=== PATIENT | female | born 1935 | race Caucasian/White ===

== ENCOUNTER 2017-03-14 08:40 | Inpatient (IN) | payer OTHER ==
[~2017-03-14] VITALS: Ht 154.9 cm; Wt 90.8 kg
[~2017-03-14 08:40] MED LIST: ACIDOPHILUS1 EAC4 PO; ACTOS15 MG; ACTOS15 MG PO; BENTYL20 MG PO; BIOTIN1000 MICRO PO; CALTRATE 600 +1 EACH; CENTRUM SILVER1 EACH; CRANBERRY300 MG PO; GLUCOSA-CHOND-1 EACH PO; GLUCOSAMINE 1,1 EAC1 PO; GLUCOSAMINE 1,1 EACH; LASIX40 MG PO; LO-DOSE ASPIRIN81 M1 PO; Lanoxin,Digitek PO; Lopressor PO; MIACALCIN200 INTUNI; MULTIVITAMIN1 EAC2 PO; NEXIUM40 MG PO; OMEGA 3-6-9 CO1 EACH PO; OPTIFLEX-C400 MG PO; OXYCODONE HCL5 MG PO; OXYCODONE-ACET1 EACH PO; PIOGLITAZONE HC15 MG PO; Proventil,Ventolin H IH; SENNA S TABLET1 EACH PO; SIMVASTATIN40 M1 PO; SIMVASTATIN40 MG PO; SUPER B COMPLE1 EAC1 PO; VALSARTAN-HCTZ1 EACH PO; VITAMIN D31000 UNIT PO; XARELTO10 MG PO; ZESTORETIC,P1 TABLET; ZOFRAN ODT4 MG PO; ZYRTEC10 M2 PO; Zestoretic,Prinzide PO; Zocor PO
[2017-03-14 10:09] LABS: HEMATOCRIT 35.3 % (36.0-46.0); HEMOGLOBIN 11.4 G/DL (11.9-15.5); MCH 30.1 PG (29.0-34.0); MCHC 32.3 G/DL (30.0-36.0); MCV 93.1 FL (83-99); PLATELET COUNT 196 K/uL (156-360); RBC DIS.WIDTH-CV 13.4 % (11.8-14.6); RED BLOOD COUNT 3.79 M/uL (3.80-5.20); WHITE BLOOD COUNT 7.2 K/uL (4.1-10.2)
[2017-03-14 10:47] LABS: TROP-I INTERPRETATION NEGATIVE; TROPONIN-I < 0.01 ng/mL (0.0-0.30)
[2017-03-14 10:48] LABS: CHLORIDE 98 MEQ/L (99-109); CREATININE 0.9 MG/DL (0.6-1.3); GFR ESTIMATE (CALCULATED) > 59 mL/min/; GLUCOSE 126 mg/dL (70-99); POTASSIUM 3.6 MEQ/L (3.7-5.4); SODIUM 136 MEQ/L (136-147); UREA NITROGEN (BUN) 22 mg/dL (9-23)
[2017-03-14 11:28] LABS: APPEARANCE SL.HAZY ((CLEAR)); BILIRUBIN NEGATIVE; BLOOD NEGATIVE; COLOR YELLOW ((YELLOW)); GLUCOSE (STRIP) NEGATIVE; KETONES NEGATIVE; LEUKOCYTES LARGE; NITRITE NEGATIVE; PROTEIN (STRIP) 30; SPECIFIC GRAVITY 1.017 (1.000-1.030); UROBILINOGEN 0.2 MG/DL (0.2-1.0)
[2017-03-14 11:46] LABS: BACTERIA RARE /HPF; EPITHELIAL CELLS RARE /HPF; HYALINE CASTS 0-5 /LPF; MUCUS TRACE /LPF; UCUL ADDED? NO; WHITE BLOOD CELLS 0-5 /HPF (0-5)
[2017-03-14] MEDS ORDERED: PERCOCET 5/31 TABLET PO (13:54)
[2017-03-14] MEDS ORDERED: SYMBICORT60 INHALAT IH (13:55)
[2017-03-14] MEDS ORDERED: FLONASE16 G1 BOTH NARES (13:55)
[2017-03-14] MEDS ORDERED: VENTOLIN HFA18 GM IH (13:55)
[2017-03-14] MEDS ORDERED: MYRBETRIQ25 MG PO (13:55)
[2017-03-14] MEDS ORDERED: GLUCOSAMINE &1 EAC1 PO (13:56)
[2017-03-14] MEDS ORDERED: CRANBERRY500 M3 PO (13:56)
[2017-03-14] MEDS ORDERED: ULTRAM50 MG PO (13:56)
[2017-03-14] MEDS ORDERED: CLARITIN10 MG PO (13:57)
[2017-03-14] MEDS ORDERED: LO-DOSE ASPIRIN81 M2 PO (13:57)
[2017-03-14] MEDS ORDERED: VITAMIN B-6100 MG PO (13:57)
[2017-03-14] MEDS ORDERED: VITAMIN B-12500 MC5 SL (13:58)
[2017-03-14 16:05] VITALS: BP 116/57
[2017-03-14 21:02] VITALS: BP 114/62
[2017-03-15 00:30] VITALS: BP 112/68
[2017-03-15 04:48] VITALS: BP 101/51
[2017-03-15 07:44] LABS: Estimated Average Glucose 123 mg/dL (70-123); HEMOGLOBIN A1c (GLYCOHEMOGLOB) 5.9 % HGB (Below 5.7)
[2017-03-15 08:16] VITALS: BP 109/60
[2017-03-15 08:17] LABS: ALBUMIN 3.6 G/DL (3.2-4.8); ALKALINE PHOSPHATASE 37 IU/L (3-129); ALT (GPT) 12 IU/L (3-49); AST (GOT) 21 IU/L (2-34); CHLORIDE 97 MEQ/L (99-109); GFR ESTIMATE (CALCULATED) 56 mL/min/; GLUCOSE 124 mg/dL (70-99); SODIUM 137 MEQ/L (136-147); TOTAL BILIRUBIN 0.5 MG/DL (0.0-1.0); TOTAL PROTEIN 6.2 G/DL (6.4-8.3); UREA NITROGEN (BUN) 27 mg/dL (9-23)
[2017-03-15 11:56] VITALS: BP 110/59
[2017-03-15 16:07] VITALS: BP 108/60
[2017-03-15 23:26] VITALS: BP 111/65
[2017-03-16 08:09] VITALS: BP 108/65
[2017-03-16 11:42] VITALS: BP 133/66
[2017-03-16 15:24] VITALS: BP 116/63
[2017-03-16 19:42] VITALS: BP 121/62
[2017-03-16 23:30] VITALS: BP 150/71
[2017-03-17 03:31] VITALS: BP 148/67
[2017-03-17 07:00] VITALS: BP 142/71
[2017-03-17 11:22] VITALS: BP 119/57
[2017-03-17 14:58] VITALS: BP 147/66
[2017-03-18 00:08] VITALS: BP 134/70
[2017-03-18 07:41] VITALS: BP 136/69
[2017-03-18] MEDS ORDERED: OSELTAMIVIR PHO30 MG PO (09:18)
[2017-03-18] MEDS ORDERED: PREDNISONE10 MG PO (09:20)
== END 2017-03-18 13:12 | disposition home health service (06) | DRG 194 ==
LOC: EME 08:40 → EDOF 13:39 → 2EAST 13:39 → ENRESERV 13:40 → 2EAST 15:41 → ENPENDDIS 03-18 → 2EAST 03-18 13:12
PROVIDERS: Emergency Medicine; Hospitalist
PROC: 5A09357 Assistance with Respiratory Ventilation, Less than 24 Consecutive Hours, Continuous Positive Airway Pressure (ICD-10-PCS; principal; 2017-03-14)
DX: J10.1 Influenza due to other identified influenza virus with other respiratory manifestations (principal); J44.1 Chronic obstructive pulmonary disease with (acute) exacerbation; I13.0 Hypertensive heart and chronic kidney disease with heart failure and stage 1 through stage 4 chronic kidney disease, or unspecified chronic kidney disease; E11.22 Type 2 diabetes mellitus with diabetic chronic kidney disease; N18.9 Chronic kidney disease, unspecified; I50.9 Heart failure, unspecified; I48.91 Unspecified atrial fibrillation; I25.10 Atherosclerotic heart disease of native coronary artery without angina pectoris; G47.30 Sleep apnea, unspecified; Z91.19 Patient's noncompliance with other medical treatment and regimen; K21.9 Gastro-esophageal reflux disease without esophagitis; R11.2 Nausea with vomiting, unspecified; E78.5 Hyperlipidemia, unspecified; M79.89 Other specified soft tissue disorders; M41.9 Scoliosis, unspecified; M19.90 Unspecified osteoarthritis, unspecified site; M48.00 Spinal stenosis, site unspecified; E66.9 Obesity, unspecified; Z68.37 Body mass index [BMI] 37.0-37.9, adult; Z90.710 Acquired absence of both cervix and uterus; Z87.891 Personal history of nicotine dependence; Z79.82 Long term (current) use of aspirin; Z85.118 Personal history of other malignant neoplasm of bronchus and lung
CPT/HCPCS: 71046; 80048; 80053; 81003; 82948; 83036; 84484; 85027; 87502; 93005; 94640; 94640 76; 94660; 94799; 99202; 99281; 99284; J1650; J1815; J2405; J7030; J7512